=== PATIENT | male | born 1955 | race Caucasian/White ===

== ENCOUNTER 2018-03-01 08:09 | Inpatient (IN) ==
--- NOTE | 2018-02-28 21:31 | Discharge Summary ---
<Tobi Cheek - Last Filed: 03/01/18 10:58> Orders not resulted at time of discharge: Pending orders 03/01/18 00:01 XR shoulder complete LT [XR] Routine H/H [Hemoglobin and Hematocrit] [HEME] Routine 03/01/18 09:47 US anesthesia pain block [US] Routine Date of Encounter: 03/01/18 - Discharge Diagnosis (1) Rotator cuff arthropathy of left shoulder Priority: Primary Status: Chronic (2) Status post reverse total replacement of left shoulder Priority: Primary Status: Acute - Hospital Course Hospital course: Mr. Nails is a 62 year old male - Time Spent with Patient Total time spent providing and/or coordinating discharge services: - Discharge Medications Home Medications: OxyCODONE Immed Rel [Roxicodone 5 MG] 5 mg PO Q6HR PRN 7 Days #28 tablet [Rx] Acetaminophen [Tylenol Arthritis] 650 mg PO Q6-8H PRN 03/01/18 [History] Amlodipine Besylate 10 mg PO DAILY 03/01/18 [History] Carvedilol 12.5 mg PO DAILY 03/01/18 [History] Multivitamin [One Daily Essential] 1 each PO DAILY 03/01/18 [History] Allergies/Adverse Reactions: 3 Allergy/AdvReac Type Severity Reaction Status Date / Time ciprofloxacin [From Cipro] Allergy Difficulty Unverified 03/01/18 10:23 Breathing sulfamethoxazole Allergy Difficulty Unverified 03/01/18 10:23 [From Septra] Breathing trimethoprim [From Septra] Allergy Difficulty Unverified 03/01/18 10:23 Breathing Primary care physician: PCP NONE - Patient Status Disposition: Home, Self-Care Condition: Good - Discharge Instructions Follow Up With: NONE,PCP [Primary Care Provider] - Scarlet Barnett [Family Provider] - Additional Instructions: Discharge Instructions: Total Shoulder Please call [facility] ([phone]), your Primary Care Physician, or report to the Emergency Room if you have any of the following symptoms: Nausea, vomiting, fever greater that 101.5, swelling, chest pain, shortness of breath, increased pain/redness/drainage/odor for your incision site, numbness/ tingling, or any other concerning symptoms. ACTIVITY: Always keep your arm in the sling. Do not raise your arm away from your body. Do not use your arm to help with getting in or out of bed. No weight bearing permitted. Only perform those exercises given to you by your therapist. Incentive Spirometer 10 times an hour. MEDICATIONS: Upon discharge resume your home medications. Take all the medications as prescribed. Take a stool softener if taking narcotic pain medications. Stool softeners are only effective if you drink enough fluids. Drink 6-8 glass of water or fluids a day, unless this is not allowed for another health problem. Despite using stool softeners, if you haven't had a bowel movement in 3 days, please switch to a gentle laxative. Gentle laxatives are sold over the counter. You should have a bowel movement within 24 hours, if not call the office. You will be discharged from the hospital with a prescription for pain medication. You are encouraged to decrease the use of narcotic pain medication as tolerated. Should you require a refill, please call the office. [facility] prescribes narcotic pain medication for only 4-6 weeks after surgery. If you require pain medication beyond this time period, you may be referred to your Primary Care Physician or to the Pain Clinic for further evaluation. Plan ahead for refills on pain medication as many narcotics either need to be picked up at the office or mailed. It is best to call 48-72 hours in advance of needing a prescription refill so you don't run out of medication. To help control the post-operative pain, you may take NSAIDs (Aleve,Advil, Motrin, Ibuprofen, Naprosyn) or Tylenol as prescribed on the bottle in addition to the pain medication. WOUND CARE: Leave the dressing on for 7-10 days. You may change the dressing if it becomes saturated greater than 50%. Do not get the dressing wet at anytime. Wash your hands with antibacterial soap, rinse and dry prior to any wound care. If you have mao the visiting nurse or rehab facility can remove the stapes 10-14 days after surgery and place steri-strips across the wound. Leave the steri-strips in place until they fall off on their own. You may let water from the shower run on top of the steri-strips. If you do not have a visiting nurse or rehab facility, you will need to return to the office at 10-14 days for the mao to be removed. If you have itching or redness around the dressing call the office. FOLLOW-UP: Please follow up with your surgeon in the orthopedic clinic, as scheduled <Glenys Altamirano - Last Filed: 03/02/18 16:25> Date of Encounter: 03/01/18 Time of Encounter: 16:17 - Discharge Diagnosis (1) Status post reverse total replacement of left shoulder Priority: Primary Status: Acute Comments: Opsite dressing, leave intact until first post-operative visit. Zipline in place , plan to remove at post-operative day #14-16. If dressing becomes >50% saturated, contact office, remove dressing and place appropriate dressing in its place. Do not allow for dressing to get wet. Shoulder Precautions x 6 weeks. Apply cold therapy wrap 3-6x/day for 20 minutes at a time. Encourage ambulation throughout the day. Use Incentive spirometer 10x/hour. Elevate affected extremity above heart as tolerated. NWB to affected upper extremity x 6 weeks. Will remove brace at first post-operative appointment. OK to remove during PT/ OT and Home exercises. (2) Rotator cuff arthropathy of left shoulder Priority: Primary Status: Chronic (3) HTN (hypertension) Priority: Secondary Status: Chronic Qualifiers: Hypertension type: essential hypertension Qualified Code(s): I10 - Essential (primary) hypertension - Hospital Course Hospital course: Mr. Nails is a 62 year old male, status post TSR-r. Patient had low temperature , that improved with warm blankets and fluids, vitals stable, otherwise uneventful postoperative course. Stable for discharge. Afebrile, vital signs stable at discharge. Vital Signs Temp 03/01/18 19:17 97.8 F 03/01/18 16:54 96.8 F L Pain control: adequate Participating in PT. All questions and concerns addressed. Educated on use of incentive spirometer. Encouraged ambulation and proper hydration. Patient educated on post-operative restrictions and post-operative care. Assessment and plan: Continue with postoperative care Discharge plan: Home , discharge today. - Time Spent with Patient Total time spent providing and/or coordinating discharge services: Date of admission: 03/02/18 Primary care physician: PCP NONE Discharging clinician: Glenys Altamirano Anticipated date of discharge: 03/01/18 - Patient Status Functional capacity at discharge: independent ambulation Overall status at discharge: patient is progressing back to baseline
--- NOTE | 2018-03-01 08:30 | Anesthesia Evaluation PreOp ---
Date of Encounter: 03/01/18 Time of Encounter: 08:27 - Past History Planned Operation: Left Total Shoulder Cardiac History: HTN, Hyperlipidemia Pulmonary History: Denies Any Significant HX, Snore TEST ADMINISTRATOR History: Denies Any Significant HX Other Medical History: Denies Any Significant HX Anesthesia History: No Prior Anesthetic Complications, Past Anesthesia Alcohol Use: occasionally Drug use: none Medications and Allergies OxyCODONE Immed Rel [Roxicodone 5 MG] 5 mg PO Q6HR PRN 7 Days #28 tablet [Rx] 3 Allergy/AdvReac Type Severity Reaction Status Date / Time ciprofloxacin [From Cipro] Allergy Difficulty Unverified 02/10/18 15:19 Breathing sulfamethoxazole Allergy Difficulty Unverified 02/10/18 15:19 [From Septra] Breathing trimethoprim [From Septra] Allergy Difficulty Unverified 02/10/18 15:19 Breathing - Meds/Allergy Pre-op Review Medications Reviewed: Yes Allergies Reviewed: Yes Beta Blockers on Current Med List: Yes If Beta Blockers taken, Date/Time (Last Dose taken): 03/01/2018 at 0430 Anesthesia Results - Labs Laboratory Tests 02/10/18 02/10/18 02/10/18 15:30 15:30 15:30 WBC 7.7 Hgb 15.8 Hct 46.7 Plt Count 253 PT 10.9 INR 1.0 APTT 36.8 H Sodium 133 L Potassium 4.2 BUN 28 H Creatinine 1.03 - Imaging EKG: report reviewed (02/10/2018 SINUS BRADYCARDIA MARKED LEFT AXIS DEVIATION RIGHT BUNDLE BRANCH BLOCK MINIMAL VOLTAGE CRITERIA FOR LVH, CONSIDER NORMAL VARIANT MODERATE T-WAVE ABNORMALITY, CONSIDER LATERAL ISCHEMIA) Anesthesia Exam O2 Sat Height 1.73 m Height 1.73 m Weight 71.668 kg Weight 71.668 kg O2 Sat by Pulse Oximetry 98 Vital Signs Temp Pulse Resp BP Pulse Ox 98.0 F 61 18 169/98 98 03/01/18 09:09 03/01/18 09:09 03/01/18 09:09 03/01/18 09:09 03/01/18 09:09 Height: 5'8'' Weight: 158 lbs NPO (# of Hours): 8 Pain Scale: 8 (left shoulder) Pain Scale Used: Numeric (1 - 10) - HEENT Pupil (Motor): EOMI Mallampati: II Teeth: Normal Oral Opening: Greater than 3 - TEST ADMINISTRATOR LOC: Oriented TEST ADMINISTRATOR Motor: Normal RUE, Normal RLE, Normal LLE, Normal Face, Deficit LUE TEST ADMINISTRATOR Sensory: Normal: RUE, LUE, RLE, LLE, Face - Cardiac Rhythm: Regular Murmur: None - Pulmonary Breath Sounds: bilateral Clear Respiratory Effort: Symmetrical Anesthesia Assess/Plan ASA Score: 2 Modified Elmore Scale for Level of Consciousness: Cooperative, oriented, and tranquil Anesthetic Plan: General, Regional Monitoring Plan: Standard Monitors Recovery Plan: PACU
[2018-03-01] MEDS ORDERED: CeFAZolin Syr 2,000MG/20 ML 2,000 MG/20 ML SYRINGE IVPB ONE (08:41)
[2018-03-01] MEDS ORDERED: Ringers Solution, Lactated 1,000 ML IVC SCH ×3 (08:45→13:06)
--- NOTE | 2018-03-01 08:52 | History & Physical Report ---
Date of Encounter: 03/01/18 Time of Encounter: 08:52 24 Hour HP Update - Instructions Instructions: If the History and Physical is less than 30 days old and was completed prior to A.M. admission and or procedure and has NOT been updated on calendar day of procedure please complete this update prior to performing procedure. - Update Patient reports changes in Medical Condition: No Changes in examination, assessment, or condition: No Changes in Medication: No Preop tests/diagnostics Reviewed: Yes Surgery Remains Indicated: Yes Consent for Planned Operative Procedure(s) Verified: Yes - Pre-Operative Checklist Preoperative Checklist Indicated: No Prophylactic Antibiotic Ordered: Yes Is VTE Prophylaxis Indicated?: Yes
[2018-03-01] MEDS ORDERED: *HR* FentaNYL (PF) 100 MCG/2 ML VIAL ONE (09:35)
[2018-03-01] MEDS ORDERED: *HR* Midazolam HCl 2 MG/2 ML VIAL ONE (09:35)
[2018-03-01] MEDS ORDERED: Lidocaine -MPF 2% 2 ML VIAL ONE (09:35)
[2018-03-01] MEDS ORDERED: Dexamethasone 4 MG/ML VIAL ONE (09:35)
[2018-03-01] MEDS ORDERED: *HR* Propofol 200 MG/20 ML VIAL IVP ONE (09:35)
[2018-03-01] MEDS ORDERED: Ondansetron 4 MG/2 ML VIAL ONE (09:35)
[2018-03-01] MEDS ORDERED: *HR* Succinylcholine 200 MG/10 ML VIAL IVP ONE (09:36)
[2018-03-01] MEDS ORDERED: *HR* Rocuronium Bromide 50 MG/5 ML VIAL ONE (09:36)
[2018-03-01] MEDS ORDERED: ROPIVACAINE HCL/PF 0.5% 30 ML VIAL ONE (10:25)
[2018-03-01] MEDS ORDERED: Bupivacaine/Clonidine Syringe 1 EACH SYRINGE ONE (10:25)
--- NOTE | 2018-03-01 10:51 | Anesthesia Procedures ---
Date of Encounter: 03/01/18 Time of Encounter: 10:49 Procedures: Anesthesia - Nerve Block Procedure Date: 03/01/18 Time: 10:49 Allergies/Adv Reactions: ciprofloxacin [From Cipro] Allergy (Unverified 03/01/18 10:23) Difficulty Breathing sulfamethoxazole [From Septra] Allergy (Unverified 03/01/18 10:23) Difficulty Breathing trimethoprim [From Septra] Allergy (Unverified 03/01/18 10:23) Difficulty Breathing Pre-op Diagnosis: left rotator cuff arthropathy Surgical Procedure: left shoulder reverse ball Checklist: Correct Patient Identifier, Correct procedure, History checked Correct side: Left Blood Thinner: No Monitor Applied: BP, Pulse Oximetry Supplemental Oxygen via Nasal Cannula (L/min): 2 Sedation: Versed (mg): 2 Sedation: Fentanyl (mcg): 50 Indication: Post Op Analgesia Pre-op Neuro Deficits: No Block Type: Supraclavicular Catheter placed: No Sterile Technique: Yes Ultrasound used: Yes Anatomy identified: Yes Visual spread of Local: Yes Neuro Stimulation: No Blood on Needle Aspiration: No Smooth Injection of Local: Yes Pain with Injection of Local: No Prep: Chlorhexadine Needle: 22 x 50 mm Stimuplex Local: 0.25% Bupivicaine w/Clonidine 20 mcg/cc (5cc SCP and 5cc ICB), Ropivacaine (0.5% 30 cc supraclav) Volume (cc): 40 Number of Attempts: 1 Complications: None/effective block
[2018-03-01] MEDS ORDERED: EPHEDrine 50 MG/ML VIAL ONE (11:09)
[2018-03-01] MEDS ORDERED: *HR* Meperidine 25 MG/ML SYRINGE IVP PRN (11:17)
[2018-03-01] MEDS ORDERED: *HR* Promethazine 25 MG/ML VIAL IVP PRN (11:17)
[2018-03-01] MEDS ORDERED: Naloxone 0.4 MG/ML INJ IVP PRN ×2 (11:17→13:06)
[2018-03-01] MEDS ORDERED: Ondansetron 4 MG/2 ML VIAL IVP ONE (11:17)
[2018-03-01] MEDS ORDERED: Albuterol 2.5 MG/3 ML NEBULIZER IH ONE (11:17)
[2018-03-01] MEDS ORDERED: *HR* HYDROmorphone (PF) 1 MG/ML SYRINGE IVP PRN (11:17)
--- NOTE | 2018-03-01 11:50 | Orthopedic Operative Note ---
Date of procedure: 03/01/18 Pre-op diagnosis: Left shoulder cuff tear arthropathy Post-op diagnosis: same Procedure: Procedure: Total Shoulder Replacment Reverse, left Estimated blood loss: 100 cc Hardware: Metal and polyethylene replacement: Arthrex 28, +2 , 30 mm screw glenoid baseplate, 2 4.5 screws. 2 5.5 screw, 1-2+4 glenosphere, 10 apex humeral stem, poly insert 3 Exam Under anesthesia: Full motion no instability Procedural Notes: Irreparable tear supraspinatus tendon. Operative procedure: The patient was brought to the operating room and placed on the operating room table. After general anesthesia was administered the operative shoulder was examined. Findings were noted. The patient was placed in the modified beachchair position. All pressure points were padded appropriately. And the head was stabilized in the neutral position. The operative extremity was prepped and draped in the sterile surgical fashion. The patient received IV antibiotics prior to skin incision. A standard deltopectoral approach was made to the operative shoulder. Incision was made to the skin and subcutaneous tissue,hemo stasis was obtained with Bovie cautery. Using careful blunt dissection the cephalic vein was identified and mobilized medially. The deltopectoral interval was developed and the clavipectoral fascia was incised. The subscap was released off the lesser tuberosity and tagged with #2 FiberWire suture subscap was irreparable. The humerus was dislocated patient noted to have irreparable tear supraspinatus tendon, and the humeral cut was made along the anatomic neck. Anterior and posterior Bankart retractors were placed to expose the glenoid. The glenoid guide was seated and the centering hole was made. It was reamed with the appropriate reamer. The 28, +2, 30 screw was seated and secured with (2) 4.5 screws and 2 5.5 screw. The baseplate was irrigated and dried and the 42+4 Glenosphere was seated and secured with the Bashir taper. The Bashir taper was tested and found to be secure the humerus was redislocated and prepared with the diaphyseal reamers, followed by a broaching process up to the appropriate size 10 apex in the patient's anatomic version. The metaphyseal reamer was then utilized. Trial reduction found the shoulder to be relocatable. Trial components were removed and 10 apex stem was impacted in place in the patient's anatomic version. Trial reduction found the shoulder to be relocatable and stable with the appropriate 3 Afshan Trial component was removed and the real implant was seated and secured the shoulder was reduced. The shoulder had excellent motion and excellent stability and no evidence of dislocation. The deep tissue was irrigated with pulse irrigation. The PA close the shoulder. The deltopectoral interval was closed with a running #1 PDS suture, subcutaneous tissue was irrigated and closed with 0 PDS suture, the skin was closed with Dermabond. The patient was placed in a sterile dressing, abduction brace and extubated. The patient was then transferred to the recovery room in stable condition. Anesthesia: GETA Surgeon: Tobi Cheek Was there an plumber's assistant present: Yes Admitting Manager: Glenys Altamirano Estimated blood loss (cc): 100 Condition: stable Disposition: PACU
--- NOTE | 2018-03-01 12:45 | Anesthesia Evaluation Post Op ---
Date of Encounter: 03/01/18 Time of Encounter: 12:44 - Vital Signs Vital Signs: Vital Signs/O2 Sat, Most Current Temp Pulse Resp BP Pulse Ox 97.0 F L 58 16 123/93 98 03/01/18 12:37 03/01/18 12:37 03/01/18 12:37 03/01/18 12:37 03/01/18 12:37 - Lungs Lungs: Clear Ascult./Percussion - Airway Airway: Non-obstructed - Cardiovascular Regular Rate - Mental Status Mental Status: Alert & Oriented, Answers Appropriately - Pain Pain Scale: 0 Pain Scale used: Numeric (1 - 10) - Nausea Vomiting Nausea Vomiting: Not Present - Hydration Hydration: Ice chips, Has not voided - Discharge PostOp Status: Transfer Patient to floor
[2018-03-01] MEDS ORDERED: Ondansetron 4 MG/2 ML VIAL IVP PRN (13:06)
[2018-03-01] MEDS ORDERED: traMADol 50 MG TABLET PO PRN (13:06)
[2018-03-01] MEDS ORDERED: MOM Conc 10 ML UD.LIQ PO PRN (13:06)
[2018-03-01] MEDS ORDERED: *HR* OxyCODONE/APAP 5/325 TABLET PO PRN (13:06)
[2018-03-01] MEDS ORDERED: *HR* OxyCODONE Immed Rel 5 MG TABLET PO PRN (13:06)
[2018-03-01] MEDS ORDERED: Sennosides 8.6 MG TABLET PO PRN (13:06)
[2018-03-01] MEDS ORDERED: Temazepam 15 MG CAPSULE PO PRN (13:06)
[2018-03-01 14:08] LABS: Hematocrit 46.2 % (37.5-50.1); Hemoglobin 15.4 g/dL (12.9-16.9)
[2018-03-01 15:09] VITALS: BP 144/97
[2018-03-01] MEDS ORDERED: *HR* Enoxaparin 30 MG/0.3 ML SYRINGE SQ SCH ×2 (18:00)
[2018-03-02] MEDS ORDERED: Multivit/Ca/Min/Fe/FA 1 TAB TABLET PO SCH (09:00)
[2018-03-02] MEDS ORDERED: amLODIPine 5 MG TABLET PO SCH (09:00)
== END 2018-03-01 20:07 | disposition home or self-care (01) | DRG 483 ==
LOC: SAMDAY 08:09 → 3NENU 12:45
PROVIDERS: ADMIT Orthopaedic Surgery; ATTEND Orthopaedic Surgery